=== PATIENT | male | born 1990 | race American Indian/Alaskan Native ===

== ENCOUNTER 2016-10-06 10:56 | Emergency (ER) | payer OTHER ==
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
[2016-10-06] MEDS ORDERED: FLEXERIL PO ONE (15:01)
[2016-10-06] MEDS ORDERED: PERCOCET 5/325 PO ONE (15:01)
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
[2016-10-06 18:09] VITALS: BP 132/67
== END 2016-10-06 18:10 | disposition home or self-care (01) ==
LOC: ED 10:56
DX: S43.402A Unspecified sprain of left shoulder joint, initial encounter (principal); S39.012A Strain of muscle, fascia and tendon of lower back, initial encounter; M79.1 Myalgia; M54.6 Pain in thoracic spine; M62.830 Muscle spasm of back; R07.89 Other chest pain; V49.49XA Driver injured in collision with other motor vehicles in traffic accident, initial encounter; Y93.9 Activity, unspecified; Y92.9 Unspecified place or not applicable; Y99.9 Unspecified external cause status
CPT/HCPCS: 71020; 72072; 72100; 93005; 93010; 99284